=== PATIENT | male | born 1955 ===

== ENCOUNTER 2020-10-26 09:37 | Emergency (ER) | payer SELFPAY ==
[2020-10-26] MEDS ORDERED: Orphenadrine Citrate 60 MG/2 ML VIAL ONE (10:55)
== END 2020-10-26 11:22 | disposition home or self-care (01) ==
LOC: MADERS 09:37
DX: M79.18 Myalgia, other site (principal); F17.220 Nicotine dependence, chewing tobacco, uncomplicated
CPT/HCPCS: 96372; 99283; J2360